=== PATIENT | male | born 1930 | race Caucasian/White ===

== ENCOUNTER 2020-07-07 08:44 | Emergency (ER) | payer OTHER ==
[2020-07-07 08:57] VITALS: TEMP 99; BMI 21.5
[2020-07-07 09:43] LABS: ALBUMIN 3.8 g/dl (3.4-5.0); BILIRUBIN,TOTAL 0.6 mg/dl (0.2-1); CALCIUM 8.9 mg/dl (8.5-10); POTASSIUM 4.7 mmol/L (3.5-5.1)
[2020-07-07 09:47] LABS: BASO % 0.8 % (0-2.0); EOS % 3.1 % (0-4.5); HEMOGLOBIN 15.2 GM/dl (11.7-16.9); LYMPH % 9.7 % (8-40); MCH 32.1 pg (25.7-33.7); MCHC 33.7 g/dl (32.0-35.9); MEAN CELL VOLUME 95.1 fl (80-96); MEAN PLT VOLUME 8.3 fl (7.5-11.1); NEUT % 76.4 % (42.8-82.8); PLATELET COUNT 201 K/MM3 (134-434); RBC 4.73 M/mm3 (4.00-5.60); RDW 13.1 % (11.9-15.9)
[2020-07-07 10:17] VITALS: BP 178/93; PULSE 78
== END 2020-07-07 10:31 | disposition home or self-care (01) ==
LOC: FER 08:44
DX: R21 Rash and other nonspecific skin eruption (principal); R73.9 Hyperglycemia, unspecified; I10 Essential (primary) hypertension
CPT/HCPCS: 36415; 80053; 85025; 99283-25